=== PATIENT | male | born 1980 | race Caucasian/White ===

== ENCOUNTER 2017-02-14 13:45 | Inpatient (IN) | payer MEDICARE, MEDICAID ==
[~2017-02-14] VITALS: Ht 177.8 cm; Wt 68.9 kg
[2017-02-14] MEDS ORDERED: SODIUM CHLORIDE 0.9% 1,000 ML IV ONE (14:17)
[2017-02-14 15:10] LABS: PROTHROMBIN TIME 10.7 sec
[2017-02-14 15:11] LABS: ALANINE AMINOTRANSFERASE 27 IU/L (13-61); ANION GAP 13; BASOPHILS % 0.8 % (0.0-2.0); CALCIUM 8.9 mg/dL (8.5-10.1); CARBON DIOXIDE 30 mEq/L (21-32); CHLORIDE 103 mEq/L (98-107); EOSINOPHILS % 2.3 % (0.0-5.0); ETHANOL BLOOD < 10 mg/dL; HEMOGLOBIN. 13.9 g/dL (14.0-18.0); INDEX HEMOLYSI 1 (1-3); INDEX ICTERIC 1 (1-4); INDEX LIPEMIC 1 (1-3); LIPASE 89 IU/L (73-393); LYMPHOCYTES % 22.6 % (20.0-50.0); MEAN CORPUSCULAR HEMOGLOBIN 30.4 pg (28.0-32.0); MEAN CORPUSCULAR HGB CONC 34.8 g/dL (31.0-37.0); MEAN CORPUSCULAR VOLUME 87.4 fL (80.0-94.0); MEAN PLATELET VOLUME 7.2 fl (7.4-10.4); MONOCYTES % 5.8 % (2.0-8.0); NEUTROPHILS % 68.5 % (40.0-76.0); PLATELET 372 x1000/uL (130-400); RED BLOOD CELL COUNT 4.58 mill/uL (4.7-6.1); RED CELL DISTRIBUTION WIDTH 12.9 % (11.6-14.6); UREA NITROGEN BLOOD 13 mg/dL (7-21); WHITE BLOOD COUNT 9.9 x1000/uL (4.5-11.0)
[2017-02-14 15:14] LABS: AMMONIA 23 uMol/L (<32); INDEX HEMOLYSI 1 (1-3)
[2017-02-14 15:16] LABS: CLARITY URINE CLEAR (CLEAR); COLOR URINE YELLOW (YELLOW); GLUCOSE URINE NEGATIVE (NEGATIVE); KETONES URINE NEGATIVE (NEGATIVE); LEUKOCYTE ESTERASE URINE NEGATIVE (NEGATIVE); NITRITE URINE NEGATIVE (NEGATIVE); OCCULT BLOOD URINE NEGATIVE (NEGATIVE); PROTEIN URINE NEGATIVE (NEGATIVE); SPECIFIC GRAVITY URINE 1.015 (1.005-1.030); UROBILINOGEN URINE 0.2 E.U./dL (0.2-1.0)
[2017-02-14 15:17] LABS: CREATINE KINASE 157 IU/L (39-308); NT PRO B-TYPE NATRIURETIC PEP 42 pg/mL (5-125); TROPONIN I < 0.02 ng/mL (0.00-0.04); eGFR > 60 mL/min (>60)
[2017-02-14 15:23] LABS: THYROID STIMULATING HORMONE 0.56 uIU/mL (0.36-3.74)
[2017-02-14 15:32] LABS: *AMPHETAMINES SCREEN URINE NEGATIVE (NEGATIVE); *BARBITURATES SCREEN URINE NEGATIVE (NEGATIVE); *BENZODIAZEPINES SCREEN URINE NEGATIVE (NEGATIVE); *COCAINE SCREEN URINE NEGATIVE (NEGATIVE); CANNABINOID URINE SCREEN NEGATIVE (NEGATIVE); ECSTASY MDMA SCREEN URINE NEGATIVE (NEGATIVE); METHADONE URINE SCREEN NEGATIVE (NEGATIVE); OPIATES URINE SCREEN NEGATIVE (NEGATIVE); PHENCYCLIDINE URINE SCREEN NEGATIVE (NEGATIVE)
[2017-02-14] MEDS ORDERED: LORAZEPAM 2MG/ML CPJ IV ONE (16:00)
[2017-02-15] MEDS ORDERED: ACETAMINOPHEN 325MG TABLET PO PRN (00:15)
[2017-02-15] MEDS ORDERED: MAGNESIUM/ALUMINUM HYDROXIDE/SIMETHICONE 30ML UDC PO PRN (00:15)
[2017-02-15] MEDS ORDERED: IPRATROPIUM/ALBUTEROL 0.5-3(2.5)MG/3ML NEB INH PRN (00:15)
[2017-02-15] MEDS ORDERED: GUAIFENESIN 200MG/10ML SUGAR FREE UDC PO PRN (00:15)
[2017-02-15] MEDS ORDERED: ONDANSETRON HCL 4MG/2ML VIAL IV PRN (00:15)
[2017-02-15] MEDS ORDERED: NA PHOS,M-B/NA PHOS,DI-BA ENEMA 118ML PR PRN (00:15)
[2017-02-15] MEDS ORDERED: DOCUSATE SODIUM 100MG CAPSULE PO PRN (00:15)
[2017-02-15] MEDS ORDERED: ACETAMINOPHEN 650MG/20.3ML UDC GT PRN (00:15)
[2017-02-15] MEDS ORDERED: ACETAMINOPHEN 650MG SUPP PR PRN (00:15)
[2017-02-15] MEDS: SODIUM CHLORIDE 0.45% 1,000 ML IV SCH ×2 (00:52→16:23)
[2017-02-15] MEDS: SODIUM CHLORIDE 0.9% INJ 3ML FLUSH IVF SCH ×3 (05:20→21:56)
[2017-02-15] MEDS: ENOXAPARIN 40MG/0.4ML SYR SUBCUT SCH (08:51)
[2017-02-15] MEDS: DIPHENHYDRAMINE 50MG/ML VIAL IV PRN (13:35)
[2017-02-15 18:31] LABS: BASOPHILS % 0.8 % (0.0-2.0); EOSINOPHILS % 2.2 % (0.0-5.0); HEMOGLOBIN. 13.9 g/dL (14.0-18.0); LYMPHOCYTES % 24.9 % (20.0-50.0); MEAN CORPUSCULAR HEMOGLOBIN 30.3 pg (28.0-32.0); MEAN CORPUSCULAR HGB CONC 34.7 g/dL (31.0-37.0); MEAN CORPUSCULAR VOLUME 87.3 fL (80.0-94.0); MEAN PLATELET VOLUME 7.5 fl (7.4-10.4); MONOCYTES % 7.4 % (2.0-8.0); NEUTROPHILS % 64.7 % (40.0-76.0); PLATELET 387 x1000/uL (130-400); RED BLOOD CELL COUNT 4.58 mill/uL (4.7-6.1); RED CELL DISTRIBUTION WIDTH 12.6 % (11.6-14.6); WHITE BLOOD COUNT 8.6 x1000/uL (4.5-11.0)
[2017-02-15 18:35] LABS: ANION GAP 14; CALCIUM 8.6 mg/dL (8.5-10.1); CARBON DIOXIDE 26 mEq/L (21-32); CHLORIDE 106 mEq/L (98-107); INDEX HEMOLYSI 1 (1-3); INDEX ICTERIC 1 (1-4); INDEX LIPEMIC 1 (1-3); UREA NITROGEN BLOOD 9 mg/dL (7-21)
[2017-02-15 18:41] LABS: ALANINE AMINOTRANSFERASE 25 IU/L (13-61); eGFR > 60 mL/min (>60)
[2017-02-15] MEDS ORDERED: LORAZEPAM 1MG TABLET PO PRN (20:30)
[2017-02-15] MEDS: HALOPERIDOL 1MG TABLET PO SCH (21:56)
[2017-02-16] MEDS: SODIUM CHLORIDE 0.45% 1,000 ML IV SCH ×2 (05:41→17:54)
[2017-02-16] MEDS: SODIUM CHLORIDE 0.9% INJ 3ML FLUSH IVF SCH ×3 (05:41→21:11)
[2017-02-16 06:49] LABS: BASOPHILS % 0.8 % (0.0-2.0); EOSINOPHILS % 2.3 % (0.0-5.0); HEMATOCRIT. 41.9 % (42.0-52.0); HEMOGLOBIN. 14.5 g/dL (14.0-18.0); LYMPHOCYTES % 24.8 % (20.0-50.0); MEAN CORPUSCULAR HEMOGLOBIN 30.4 pg (28.0-32.0); MEAN CORPUSCULAR HGB CONC 34.7 g/dL (31.0-37.0); MEAN CORPUSCULAR VOLUME 87.7 fL (80.0-94.0); MEAN PLATELET VOLUME 7.1 fl (7.4-10.4); MONOCYTES % 7.5 % (2.0-8.0); NEUTROPHILS % 64.6 % (40.0-76.0); PLATELET 389 x1000/uL (130-400); RED BLOOD CELL COUNT 4.77 mill/uL (4.7-6.1); RED CELL DISTRIBUTION WIDTH 12.9 % (11.6-14.6); WHITE BLOOD COUNT 10.4 x1000/uL (4.5-11.0)
[2017-02-16] MEDS: HALOPERIDOL 1MG TABLET PO SCH ×2 (09:15→21:11)
[2017-02-16] MEDS: ENOXAPARIN 40MG/0.4ML SYR SUBCUT SCH (09:16)
[2017-02-17] MEDS: SODIUM CHLORIDE 0.45% 1,000 ML IV SCH (07:06)
[2017-02-17] MEDS: SODIUM CHLORIDE 0.9% INJ 3ML FLUSH IVF SCH ×2 (07:06→21:27)
[2017-02-17] MEDS: HALOPERIDOL 1MG TABLET PO SCH ×2 (08:37→21:27)
[2017-02-17] MEDS: ENOXAPARIN 40MG/0.4ML SYR SUBCUT SCH (08:38)
[2017-02-18] MEDS: SODIUM CHLORIDE 0.9% INJ 3ML FLUSH IVF SCH ×3 (06:35→22:51)
[2017-02-18] MEDS: ENOXAPARIN 40MG/0.4ML SYR SUBCUT SCH (09:44)
[2017-02-18] MEDS: HALOPERIDOL 1MG TABLET PO SCH ×2 (09:44→22:50)
[2017-02-19] MEDS: SODIUM CHLORIDE 0.9% INJ 3ML FLUSH IVF SCH ×3 (06:27→23:16)
[2017-02-19] MEDS: HALOPERIDOL 1MG TABLET PO SCH ×2 (09:00→23:17)
[2017-02-19] MEDS: ENOXAPARIN 40MG/0.4ML SYR SUBCUT SCH (10:27)
[2017-02-20] MEDS: SODIUM CHLORIDE 0.9% INJ 3ML FLUSH IVF SCH ×3 (06:33→22:42)
[2017-02-20] MEDS: HALOPERIDOL 1MG TABLET PO SCH ×2 (09:38→22:42)
[2017-02-20] MEDS: ENOXAPARIN 40MG/0.4ML SYR SUBCUT SCH (09:39)
[2017-02-21] MEDS: SODIUM CHLORIDE 0.9% INJ 3ML FLUSH IVF SCH ×3 (06:52→21:36)
[2017-02-21] MEDS: ENOXAPARIN 40MG/0.4ML SYR SUBCUT SCH (09:20)
[2017-02-21] MEDS: HALOPERIDOL 1MG TABLET PO SCH ×2 (09:21→21:37)
[2017-02-22] MEDS: ENOXAPARIN 40MG/0.4ML SYR SUBCUT SCH (09:00)
[2017-02-22] MEDS: HALOPERIDOL 1MG TABLET PO SCH ×2 (09:00→21:05)
[2017-02-22] MEDS: DIPHENHYDRAMINE 50MG/ML VIAL IV PRN (21:02)
[2017-02-22] MEDS: SODIUM CHLORIDE 0.9% INJ 3ML FLUSH IVF SCH (21:09)
[2017-02-22 23:12] LABS: EOSINOPHILS % 5.9 % (0.0-5.0); HEMATOCRIT. 39.3 % (42.0-52.0); LYMPHOCYTES % 40.9 % (20.0-50.0); MEAN CORPUSCULAR HEMOGLOBIN 30.5 pg (28.0-32.0); MEAN CORPUSCULAR HGB CONC 35.7 g/dL (31.0-37.0); MEAN CORPUSCULAR VOLUME 85.6 fL (80.0-94.0); MONOCYTES % 14.4 % (2.0-8.0); NEUTROPHILS % 37.8 % (40.0-76.0); PLATELET 280 x1000/uL (130-400); RED BLOOD CELL COUNT 4.59 mill/uL (4.7-6.1); RED CELL DISTRIBUTION WIDTH 12.6 % (11.6-14.6); WHITE BLOOD COUNT 7.6 x1000/uL (4.5-11.0)
[2017-02-22 23:31] LABS: ALANINE AMINOTRANSFERASE 35 IU/L (13-61); ALBUMIN 3.4 g/dL (3.4-5.0); ANION GAP 13; CALCIUM 8.6 mg/dL (8.5-10.1); CARBON DIOXIDE 31 mEq/L (21-32); CHLORIDE 99 mEq/L (98-107); INDEX HEMOLYSI 1 (1-3); INDEX ICTERIC 1 (1-4); INDEX LIPEMIC 1 (1-3); UREA NITROGEN BLOOD 12 mg/dL (7-21); eGFR > 60 mL/min (>60)
[2017-02-23] MEDS: SODIUM CHLORIDE 0.9% INJ 3ML FLUSH IVF SCH ×2 (06:50→22:12)
[2017-02-23] MEDS: HALOPERIDOL 1MG TABLET PO SCH ×2 (09:44→22:05)
[2017-02-23] MEDS: ENOXAPARIN 40MG/0.4ML SYR SUBCUT SCH (09:44)
[2017-02-23] MEDS: DIPHENHYDRAMINE 50MG/ML VIAL IV PRN ×2 (10:54→22:07)
[2017-02-24] MEDS: ENOXAPARIN 40MG/0.4ML SYR SUBCUT SCH (09:17)
[2017-02-24] MEDS: HALOPERIDOL 1MG TABLET PO SCH ×2 (09:17→21:08)
[2017-02-24] MEDS: SODIUM CHLORIDE 0.9% INJ 3ML FLUSH IVF SCH ×2 (14:00→21:08)
[2017-02-25] MEDS: HALOPERIDOL 1MG TABLET PO SCH ×2 (09:51→22:47)
[2017-02-25] MEDS: ENOXAPARIN 40MG/0.4ML SYR SUBCUT SCH (09:54)
[2017-02-26] MEDS: HALOPERIDOL 1MG TABLET PO SCH ×2 (08:35→21:41)
[2017-02-26] MEDS: SODIUM CHLORIDE 0.9% INJ 3ML FLUSH IVF SCH ×4 (08:35→21:41)
[2017-02-27] MEDS: HALOPERIDOL 1MG TABLET PO SCH ×2 (08:35→21:45)
[2017-02-27] MEDS: DIPHENHYDRAMINE 50MG/ML VIAL IV PRN ×2 (10:28→16:11)
[2017-02-27] MEDS: SODIUM CHLORIDE 0.9% INJ 3ML FLUSH IVF SCH ×2 (16:06→21:45)
[2017-02-28] MEDS: SODIUM CHLORIDE 0.9% INJ 3ML FLUSH IVF SCH ×3 (06:22→22:27)
[2017-02-28] MEDS: HALOPERIDOL 1MG TABLET PO SCH ×2 (08:09→22:27)
[2017-03-01] MEDS: SODIUM CHLORIDE 0.9% INJ 3ML FLUSH IVF SCH ×3 (07:24→22:26)
[2017-03-01] MEDS: HALOPERIDOL 1MG TABLET PO SCH ×2 (09:07→22:26)
[2017-03-02] MEDS: SODIUM CHLORIDE 0.9% INJ 3ML FLUSH IVF SCH ×3 (06:57→20:58)
[2017-03-02] MEDS: HALOPERIDOL 1MG TABLET PO SCH ×2 (08:29→20:58)
[2017-03-03] MEDS: HALOPERIDOL 1MG TABLET PO SCH ×2 (09:02→22:25)
[2017-03-03] MEDS: SODIUM CHLORIDE 0.9% INJ 3ML FLUSH IVF SCH ×2 (14:16→22:25)
[2017-03-04] MEDS: SODIUM CHLORIDE 0.9% INJ 3ML FLUSH IVF SCH ×3 (06:11→21:02)
[2017-03-04] MEDS: DIPHENHYDRAMINE 50MG/ML VIAL IV PRN (06:23)
[2017-03-04] MEDS: HALOPERIDOL 1MG TABLET PO SCH ×2 (09:04→21:02)
[2017-03-05] MEDS: SODIUM CHLORIDE 0.9% INJ 3ML FLUSH IVF SCH ×3 (05:55→21:25)
[2017-03-05] MEDS: HALOPERIDOL 1MG TABLET PO SCH ×2 (08:56→20:45)
[2017-03-05] MEDS: DIPHENHYDRAMINE 50MG/ML VIAL IV PRN (21:40)
[2017-03-06] MEDS: SODIUM CHLORIDE 0.9% INJ 3ML FLUSH IVF SCH ×3 (06:01→23:52)
[2017-03-06] MEDS ORDERED: SODIUM CHLORIDE 0.9% 1,000 ML IV ONE ×3 (14:15→17:15)
[2017-03-06] MEDS: HALOPERIDOL 1MG TABLET PO SCH ×2 (15:52→23:52)
[2017-03-06 15:54] LABS: CHLORIDE 104 mEq/L (98-107); INDEX HEMOLYSI 1 (1-3); INDEX ICTERIC 1 (1-4); INDEX LIPEMIC 1 (1-3)
[2017-03-06 16:00] LABS: EOSINOPHILS % 2.6 % (0.0-5.0); HEMATOCRIT. 40.5 % (42.0-52.0); MEAN CORPUSCULAR HEMOGLOBIN 30.4 pg (28.0-32.0); MEAN CORPUSCULAR HGB CONC 34.6 g/dL (31.0-37.0); MEAN CORPUSCULAR VOLUME 87.7 fL (80.0-94.0); MEAN PLATELET VOLUME 6.6 fl (7.4-10.4); MONOCYTES % 8.1 % (2.0-8.0); NEUTROPHILS % 56.3 % (40.0-76.0); PLATELET 449 x1000/uL (130-400); RED BLOOD CELL COUNT 4.62 mill/uL (4.7-6.1); RED CELL DISTRIBUTION WIDTH 12.9 % (11.6-14.6); WHITE BLOOD COUNT 10.4 x1000/uL (4.5-11.0)
[2017-03-06 16:04] LABS: ALANINE AMINOTRANSFERASE 30 IU/L (13-61); ALBUMIN 3.5 g/dL (3.4-5.0); ANION GAP 12; CALCIUM 8.3 mg/dL (8.5-10.1); CARBON DIOXIDE 30 mEq/L (21-32); UREA NITROGEN BLOOD 15 mg/dL (7-21); eGFR > 60 mL/min (>60)
[2017-03-07] MEDS: HALOPERIDOL 1MG TABLET PO SCH ×2 (09:37→21:47)
[2017-03-07] MEDS: SODIUM CHLORIDE 0.9% INJ 3ML FLUSH IVF SCH ×2 (14:00→22:00)
[2017-03-08] MEDS: SODIUM CHLORIDE 0.9% INJ 3ML FLUSH IVF SCH ×2 (06:00→14:00)
[2017-03-08] MEDS: HALOPERIDOL 1MG TABLET PO SCH (08:37)
[2017-03-08 17:19] VITALS: BP 91/49
== END 2017-03-08 19:38 | DRG 640 ==
LOC: ER 14:10 → 5WST 15:42 → 6EST 02-18 11:50
PROVIDERS: ADMIT Family Medicine; ATTEND Family Medicine
DX: E86.0 Dehydration (principal); G93.40 Encephalopathy, unspecified; G10 Huntington's disease; R62.7 Adult failure to thrive; G93.89 Other specified disorders of brain; E87.6 Hypokalemia; F79 Unspecified intellectual disabilities; D63.8 Anemia in other chronic diseases classified elsewhere; Z87.891 Personal history of nicotine dependence
CPT/HCPCS: 36415; 70450; 71010; 80053; 80061; 80305; 81003; 82140; 82550; 83605; 83690; 83880; 84443; 84484; 85025; 85610; 87040; 87086; 92610; 93005; 96361; 96374; 97116; 97162; 97164; 97167; 97530; 97535; 99285; A6261; C1893; G0482; J1200; J1650; J2060; J7030; J7040

== ENCOUNTER 2017-03-09 00:04 | Emergency (ER) | payer MEDICARE, MEDICAID ==
[~2017-03-09] VITALS: Ht 182.9 cm; Wt 82.0 kg
[2017-03-09] MEDS ORDERED: LORAZEPAM 2MG/ML CPJ IM STA (06:32)
[2017-03-09 07:00] LABS: BASOPHILS % 0.7 % (0.0-2.0); EOSINOPHILS % 4.2 % (0.0-5.0); HEMATOCRIT. 40.1 % (42.0-52.0); HEMOGLOBIN. 13.8 g/dL (14.0-18.0); LYMPHOCYTES % 35.9 % (20.0-50.0); MEAN CORPUSCULAR HEMOGLOBIN 30.3 pg (28.0-32.0); MEAN CORPUSCULAR HGB CONC 34.4 g/dL (31.0-37.0); MEAN CORPUSCULAR VOLUME 88.2 fL (80.0-94.0); MEAN PLATELET VOLUME 6.7 fl (7.4-10.4); MONOCYTES % 8.8 % (2.0-8.0); NEUTROPHILS % 50.4 % (40.0-76.0); PLATELET 383 x1000/uL (130-400); RED BLOOD CELL COUNT 4.55 mill/uL (4.7-6.1); RED CELL DISTRIBUTION WIDTH 13.1 % (11.6-14.6); WHITE BLOOD COUNT 8.5 x1000/uL (4.5-11.0)
[2017-03-09 07:10] LABS: ACETAMINOPHEN < 2 ug/mL (10-30); ALANINE AMINOTRANSFERASE 34 IU/L (13-61); ALBUMIN 3.4 g/dL (3.4-5.0); ANION GAP 11; CALCIUM 8.4 mg/dL (8.5-10.1); CARBON DIOXIDE 31 mEq/L (21-32); CHLORIDE 105 mEq/L (98-107); ETHANOL BLOOD < 10 mg/dL; INDEX HEMOLYSI 1 (1-3); INDEX ICTERIC 1 (1-4); INDEX LIPEMIC 1 (1-3); UREA NITROGEN BLOOD 18 mg/dL (7-21); eGFR > 60 mL/min (>60)
[2017-03-09 16:22] LABS: CLARITY URINE CLOUDY (CLEAR); COLOR URINE YELLOW (YELLOW); GLUCOSE URINE NEGATIVE (NEGATIVE); KETONES URINE NEGATIVE (NEGATIVE); LEUKOCYTE ESTERASE URINE NEGATIVE (NEGATIVE); NITRITE URINE NEGATIVE (NEGATIVE); OCCULT BLOOD URINE NEGATIVE (NEGATIVE); PH URINE 7.5 (4.5-8.0); PROTEIN URINE NEGATIVE (NEGATIVE); SPECIFIC GRAVITY URINE 1.014 (1.005-1.030); UROBILINOGEN URINE 0.2 E.U./dL (0.2-1.0)
[2017-03-09 16:33] LABS: *AMPHETAMINES SCREEN URINE NEGATIVE (NEGATIVE); *BARBITURATES SCREEN URINE NEGATIVE (NEGATIVE); *BENZODIAZEPINES SCREEN URINE NEGATIVE (NEGATIVE); *COCAINE SCREEN URINE NEGATIVE (NEGATIVE); CANNABINOID URINE SCREEN NEGATIVE (NEGATIVE); ECSTASY MDMA SCREEN URINE NEGATIVE (NEGATIVE); METHADONE URINE SCREEN NEGATIVE (NEGATIVE); OPIATES URINE SCREEN NEGATIVE (NEGATIVE); PHENCYCLIDINE URINE SCREEN NEGATIVE (NEGATIVE)
[2017-03-09 16:44] LABS: AMORPHOUS SEDIMENT URINE 1+ /lpf; BACTERIA URINE 1+; RBC URINE 0-2 /hpf (0-2); SQUAMOUS EPITHELIAL CELL URINE FEW /lpf (RARE/1+); WBC URINE 0-2 /hpf (0-2)
[2017-03-09 21:21] VITALS: BP 107/68
== END 2017-03-09 21:24 ==
LOC: ER 00:27
DX: F91.1 Conduct disorder, childhood-onset type (principal); G10 Huntington's disease; F17.210 Nicotine dependence, cigarettes, uncomplicated
CPT/HCPCS: 36415; 70450; 80053; 80305; 80307; 80329; 81001; 85025; 96372; 99285; G0482; J2060

== ENCOUNTER 2019-07-18 10:16 | Emergency (ER) | payer MEDICARE, MEDICAID ==
[~2019-07-18] VITALS: Ht 180.3 cm; Wt 73.0 kg
[2019-07-18] MEDS ORDERED: LIDOCAINE HCL/EPINEPHRINE 1%-EPI 1:100,000 30 ML VIAL INFIL ONE (11:45)
[2019-07-18] MEDS ORDERED: TETANUS, DIPHTHERIA, PERTUSSIS VAC/PF 0.5ML (>7YR OLD) IM ONE (11:45)
[2019-07-18] MEDS ORDERED: HALOPERIDOL LACTATE 5MG/ML VIAL IM ONE ×3 (12:30→13:30)
[2019-07-18] MEDS ORDERED: LORAZEPAM 2MG/ML CPJ IM ONE (12:30)
[2019-07-18] MEDS ORDERED: LIDOCAINE HCL/EPINEPHRINE 1%-EPI 1:100,000 20 ML VIAL INFIL NR (12:45)
[2019-07-18 16:00] VITALS: BP 106/76
[2019-07-23] MEDS ORDERED: BENZ1TAB7 PO (06:26)
[2019-07-23] MEDS ORDERED: VITA0.4T16 MT (06:26)
[2019-07-23] MEDS ORDERED: HALO2TAB MT (06:26)
[2019-07-23] MEDS ORDERED: PANT40TA4 PO (06:26)
[2019-07-23] MEDS ORDERED: MULT-1146 PO (06:26)
[2019-07-23] MEDS ORDERED: HALO2TAB2 MT (06:26)
== END 2019-07-18 16:15 | disposition home or self-care (01) ==
LOC: ER 10:33
DX: S51.811A Laceration without foreign body of right forearm, initial encounter (principal); S40.211A Abrasion of right shoulder, initial encounter; F20.9 Schizophrenia, unspecified; K21.9 Gastro-esophageal reflux disease without esophagitis; G10 Huntington's disease; Z87.820 Personal history of traumatic brain injury; F15.10 Other stimulant abuse, uncomplicated; W01.0XXA Fall on same level from slipping, tripping and stumbling without subsequent striking against object, initial encounter; Y93.89 Activity, other specified; Y92.128 Other place in nursing home as the place of occurrence of the external cause
CPT/HCPCS: 12002; 73020; 73090; 90471; 90715; 96372; 99283; J1630; J2060; J3490

== ENCOUNTER 2019-08-05 19:40 | Emergency (ER) | payer MEDICARE, MEDICAID ==
[~2019-08-05] VITALS: Ht 165.1 cm; Wt 69.0 kg
[~2019-08-05 19:40] MED LIST: BENZ1TAB7 PO; HALO2TAB MT; HALO2TAB2 MT; MULT-1146 PO; PANT40TA4 PO; VITA0.4T16 MT
[2019-08-05] MEDS ORDERED: HALOPERIDOL LACTATE 5MG/ML VIAL IM ONE ×2 (22:30→23:30)
[2019-08-05 22:47] LABS: BASOPHILS % 1.3 % (0.0-2.0); EOSINOPHILS % 3.7 % (0.0-5.0); HEMATOCRIT. 31.8 % (42.0-52.0); LYMPHOCYTES % 27.2 % (20.0-50.0); MEAN CORPUSCULAR HEMOGLOBIN 30.8 pg (28.0-32.0); MEAN CORPUSCULAR VOLUME 89.1 fL (80.0-94.0); MEAN PLATELET VOLUME 6.5 fl (7.4-10.4); MONOCYTES % 5.2 % (2.0-8.0); NEUTROPHILS % 62.6 % (40.0-76.0); PLATELET 633 x1000/uL (130-400); RED BLOOD CELL COUNT 3.57 mill/uL (4.7-6.1); RED CELL DISTRIBUTION WIDTH 13.9 % (11.6-14.6)
[2019-08-05 22:51] LABS: CHLORIDE 108 mEq/L (98-107)
[2019-08-05] MEDS ORDERED: LORAZEPAM 2MG/ML CPJ IM ONE (23:30)
[2019-08-06 04:06] VITALS: BP 112/68
== END 2019-08-06 04:25 | disposition home or self-care (01) ==
LOC: ER 19:40
DX: L03.114 Cellulitis of left upper limb (principal); G10 Huntington's disease; F20.9 Schizophrenia, unspecified; I10 Essential (primary) hypertension; K21.9 Gastro-esophageal reflux disease without esophagitis
CPT/HCPCS: 36415; 80053; 85025; 93971; 96372; 99284; J1630; J2060

== ENCOUNTER 2020-05-08 13:38 | Emergency (ER) | payer MEDICAID, MEDICARE ==
[~2020-05-08] VITALS: Ht 185.4 cm; Wt 82.0 kg
[2020-05-08 17:52] LABS: BASOPHILS % 0.3 % (0.0-2.0); EOSINOPHILS % 0.4 % (0.0-5.0); HEMATOCRIT. 38.6 % (42.0-52.0); HEMOGLOBIN. 13.6 g/dL (14.0-18.0); MEAN CORPUSCULAR HEMOGLOBIN 31.5 pg (28.0-32.0); MEAN CORPUSCULAR VOLUME 89.7 fL (80.0-94.0); MEAN PLATELET VOLUME 7.5 fl (7.4-10.4); MONOCYTES % 4.8 % (2.0-8.0); NEUTROPHILS % 81.5 % (40.0-76.0); PLATELET 313 x1000/uL (130-400); RED CELL DISTRIBUTION WIDTH 12.9 % (11.6-14.6)
[2020-05-08 17:58] LABS: CHLORIDE 106 mEq/L (98-107)
[2020-05-08 18:43] VITALS: BP 119/98
== END 2020-05-08 20:00 | disposition home or self-care (01) ==
LOC: ER 13:44
DX: I10 Essential (primary) hypertension (principal); Z79.899 Other long term (current) drug therapy
CPT/HCPCS: 36415; 71045; 80048; 82962; 84484; 85025; 93005; 99285

== ENCOUNTER 2022-10-08 18:05 | Emergency (ER) | payer MEDICAID, MEDICARE ==
[~2022-10-08] VITALS: Ht 165.1 cm; Wt 50.0 kg
[~2022-10-08 18:05] MED LIST changes: -PANT40TA4 PO; +PANT40TA51 PO
[2022-10-08 19:58] LABS: BASOPHILS % 1.1 % (0.0-2.0); EOSINOPHILS % 1.8 % (0.0-5.0); HEMOGLOBIN. 13.9 g/dL (14.0-18.0); LYMPHOCYTES % 46.5 % (20.0-50.0); MEAN CORPUSCULAR HEMOGLOBIN 31.8 pg (28.0-32.0); MONOCYTES % 5.6 % (2.0-8.0); PLATELET 365 x1000/uL (130-400); RED BLOOD CELL COUNT 4.36 mill/uL (4.7-6.1); RED CELL DISTRIBUTION WIDTH 12.8 % (11.6-14.6)
[2022-10-09 04:40] LABS: *AMPHETAMINES SCREEN URINE NEGATIVE (NEGATIVE); *BARBITURATES SCREEN URINE NEGATIVE (NEGATIVE); *BENZODIAZEPINES SCREEN URINE NEGATIVE (NEGATIVE); *COCAINE SCREEN URINE NEGATIVE (NEGATIVE); CANNABINOID URINE SCREEN NEGATIVE (NEGATIVE); METHADONE URINE SCREEN NEGATIVE (NEGATIVE); OPIATES URINE SCREEN NEGATIVE (NEGATIVE); PHENCYCLIDINE URINE SCREEN NEGATIVE (NEGATIVE)
[2022-10-09 06:34] LABS: CHLORIDE 102 mEq/L (98-107)
[2022-10-09 08:00] VITALS: BP 96/34
[2022-10-09] MEDS ORDERED: SODIUM CHLORIDE 0.9% 1,000 ML IV ONE (12:45)
== END 2022-10-09 15:29 ==
LOC: ER 18:05
DX: R06.02 Shortness of breath (principal); R00.1 Bradycardia, unspecified; R63.0 Anorexia; G10 Huntington's disease; Z68.1 Body mass index [BMI] 19.9 or less, adult; Z20.822 Contact with and (suspected) exposure to COVID-19
CPT/HCPCS: 36415; 71045; 80053; 80305; 80320; 83880; 84484; 85025; 87426; 93005; 99285; J7030; G0480